=== PATIENT | female | born 1950 | race Caucasian/White ===

== ENCOUNTER 2018-06-08 14:28 | Inpatient (IN) | payer OTHER ==
[~2018-06-08] VITALS: Ht 157.5 cm; Wt 54.0 kg
[~2018-06-08 14:28] MED LIST: ADULT LOW DOSE81 MG; ASPIR 8181 MG PO; ATENOLOL-CHLOR1 EAC1 PO; CALCIUM 500+D1 EAC2; COMBIVENT INH; DEXAMETHASONE 44 M1 PO; DIFLUNISAL500 MG; DUONEB 2.5-0.5 M3 ML INH; FERREX 150 PLU1 EAC1 PO; LEVAQUIN 750 M750 MG PO; ONDANSETRON HCL4 M2 PO; PREDNISONE 10 M10 MG PO; PREDNISONE50 MG PO; PREVACID 30MG C30 M1 PO; PROPRANOLOL 4040 MG PO; PROTONIX40 M1 PO; PULMICORT0.5 MG/22 INH; SIMVASTATIN40 MG PO; SYMBICORT160 MCG/4. INH; VITAMIN D1000 UNI1; VITAMIN D3; VITAMIN D3400 UNIT PO; XARELTO15 MG PO
[2018-06-08] MEDS ORDERED: PRENATAL PO (16:18)
[2018-06-08 16:19] VITALS: BP 136/67
[2018-06-08 17:01] LABS: HEMATOCRIT 40.1 % (37.0-47.0); HEMOGLOBIN 13.1 gm/dL (12.0-15.0); MCH 29.3 pg (26.0-34.0); MCHC 32.7 g/dL (28.0-37.0); MCV 89.4 fL (80.0-100.0); MPV 7.1 fl. (7.2-11.1); RBC 4.49 mil/uL (4.20-5.00); RDW-CV 14.2 % (10.5-14.5); WBC 6.9 thou/uL (4.0-11.0)
[2018-06-08 17:17] LABS: ALBUMIN 2.7 g/dL (3.4-5.0); ANION GAP 4 mmol/L (7-16); BUN 20 mg/dL (7-18); CALCIUM 9.6 mg/dL (8.5-10.1); CHLORIDE 98 mmol/L (98-107); CO2 36 mmol/L (21-32); CREATININE 0.8 mg/dL (0.6-1.3); GLUCOSE 91 mg/dL (70-99); PHOSPHORUS* 4.1 mg/dL (2.5-4.9); POTASSIUM 3.7 mmol/L (3.5-5.1); SODIUM 138 mmol/L (136-145); TROPONIN-I LEVEL <0.06 ng/mL (<0.06)
[2018-06-08 20:25] VITALS: BP 102/55
[2018-06-09] VITALS: BP 100/63
[2018-06-09 04:00] VITALS: BP 96/52
[2018-06-09 07:55] VITALS: BP 103/68
[2018-06-09 12:00] VITALS: BP 111/65
--- NOTE | 2018-06-09 15:08 | 2DMMODE ---
[place] [address] 2 D/M-MODE ECHOCARDIOGRAM Name: OBI SALDIVAR Room: [address] IN [facility]#: [id number] Admission: 06/08/18 Attend Phys: Josuse Dumont Discharge: Date of : 46 Date of Service: 06/09/18 1507 Report #: [id number] THIS REPORT FOR: //name// APPROVED REPORT Study performed: 06/09/2018 11:39:13 EXAM: Comprehensive 2D, Doppler, and color-flow Echocardiogram Patient Location: In-Patient Room #: [facility] Status: routine BSA: 1.55 HR: 90 bpm BP: 103/68 mmHg Rhythm: NSR Other Information Study Quality: Good Indications Hypotension Pulmonary Embolism 2D Dimensions IVSd: 9.87 (7-11mm) LVOT Diam: 21.33 (18-24mm) LVDd: 34.83 mm PWd: 10.85 (7-11mm) Ascending Ao: 28.37 (22-36mm) LVDs: 20.24 (25-40mm) Aortic Root: 30.03 mm Volumes Left Atrial Volume (Systole) LA ESV Index: 14.60 mL/m2 Aortic Valve AoV Peak Walter.: 1.18 m/s AO Peak Gr.: 5.56 mmHg LVOT Max P.54 mmHg AO Mean Gr.: 3.00 mmHg LVOT Mean P.52 mmHg LVOT Max V: 0.94 m/s AO V2 VTI: 21.37 cm LVOT Mean V: 0.56 m/s DAVID (VTI): 3.02 cm2 LVOT V1 VTI: 18.05 cm Mitral Valve E/A Ratio: 0.78 MV Decel. Time: 199.03 [place] [address] 2 D/M-MODE ECHOCARDIOGRAM Name: OBI SALDIVAR Room: [address] IN .R.#: [id number] Admission: 06/08/18 Attend Phys: Jossue Dumont Discharge: Date of : 46 Date of Service: 06/09/18 1507 Report #: [id number] MV E Max Walter.: 0.67 m/s MV PHT: 57.72 ms MVA (PHT): 3.81 cm2 TDI E/Lateral E': 8.38 E/Medial E': 8.38 Medial E' Walter.: 0.08 m/s Lateral E' Walter.: 0.08 m/s Pulmonary Valve PV Peak Walter.: 1.01 m/s PV Peak Gr.: 4.09 mmHg Left Ventricle The left ventricle is normal size. There is normal LV segmental wall motion. There is normal left ventricular wall thickness. Left ventricular systolic function is normal. The left ventricular ejection fraction is within the normal range. LVEF is 60-65%. Grade I - abnormal relaxation pattern. Right Ventricle The right ventricle is normal size. The right ventricular systolic function is normal. Atria The left atrium size is normal. The right atrium size is normal. Aortic Valve Mild aortic valve sclerosis. No aortic regurgitation is present. There is no aortic valvular stenosis. Mitral Valve The mitral valve is normal in structure. There is no mitral valve regurgitation noted. No evidence of mitral valve stenosis. Tricuspid Valve The tricuspid valve is normal in structure. Unable to assess PA pressure. Trace tricuspid regurgitation. Pulmonic Valve The pulmonary valve is normal in structure. There is no pulmonic valvular regurgitation. Great Vessels The aortic root is normal in size. IVC is normal in size and collapses >50% [place] [address] 2 D/M-MODE ECHOCARDIOGRAM Name: OBI SALDIVAR Room: [address] IN [facility]#: [id number] Admission: 06/08/18 Attend Phys: Jossue Dumont Discharge: Date of : 46 Date of Service: 06/09/18 1507 Report #: [id number] Pericardium There is no pericardial effusion. <Conclusion> The left ventricle is normal size. There is normal left ventricular wall thickness. Left ventricular systolic function is normal. The left ventricular ejection fraction is within the normal range. LVEF is 60-65%. Grade I - abnormal relaxation pattern. The right ventricle is normal size. The left atrium size is normal. Mild aortic valve sclerosis. No aortic regurgitation is present. There is no aortic valvular stenosis. The mitral valve is normal in structure. The tricuspid valve is normal in structure. IVC is normal in size and collapses >50% with inspiration. There is no pericardial effusion. There is normal LV segmental wall motion. <ELECTRONICALLY SIGNED> By: Rommel Gaspar MD, FACC 06/09/18 1507 1507 1507 Rommel Gaspar MD, FACC /INF
[2018-06-09 16:00] VITALS: BP 146/84
[2018-06-09 20:00] VITALS: BP 103/58
[2018-06-10] VITALS: BP 116/62
[2018-06-10 04:00] VITALS: BP 116/66
[2018-06-10 04:50] LABS: HEMATOCRIT 35.1 % (37.0-47.0); HEMOGLOBIN 11.6 gm/dL (12.0-15.0); MCH 29.8 pg (26.0-34.0); MCHC 33.1 g/dL (28.0-37.0); MPV 7.6 fl. (7.2-11.1); RBC 3.91 mil/uL (4.20-5.00); RDW-CV 14.1 % (10.5-14.5); WBC 7.6 thou/uL (4.0-11.0)
[2018-06-10 07:40] VITALS: BP 115/65
[2018-06-10] MEDS ORDERED: ENOXAPARIN60 MG/0.1 SUBQ (10:25)
[2018-06-10 10:33] VITALS: BP 115/65
--- NOTE | 2018-06-10 12:03 | CON ---
[address] [address] CONSULTATION Name: OBI SALDIVAR Room: [address] ADM IN M.R.#: [id number] Admission: 06/08/18 Attend Phys: Gina Brown Discharge: Date of : 46 Report #: [id number] THIS REPORT FOR: //name// CC: Kelton Andry Dumont DATE OF SERVICE: 06/09/2018 REASON FOR EVALUATION: Pulmonary embolism. REFERRING PHYSICIAN: Jossue Dumont MD CHIEF COMPLAINT: Incidental pulmonary embolism found on a serial CT. HISTORY OF PRESENT ILLNESS: The patient is a pleasant 68-year-old woman with past medical history of lung cancer diagnosed and treated last year with chemoradiation, history of COPD on home O2 for the last 3 years. She was admitted for further evaluation after incidental finding of pulmonary embolism. The patient is following at [facility] in [place] and she had serial CT for followup of her lung cancer and incidentally found to have pulmonary embolism. CT is not available at this time. However, from the patient records, multiple PEs were found. Previously in 2017 she had left upper pulmonary embolism in a CT. At that time, she was treated with anticoagulation, which was stopped. The patient states that she is on her usual health and complains of exertional dyspnea on moderate exertion, using oxygen all the time. She has chronic cough productive of clear to yellow mucus; however, no change in her cough. She has no chest pain, hemoptysis, no fever or chills. As above, the patient in 06/2017 was admitted, had pulmonary embolism and had also aspirated tooth that was extracted by Dr. An. Also, during that admission the patient had chronic obstructive pulmonary disease exacerbation requiring ICU admission on BiPAP support. REVIEW OF SYSTEMS: PULMONARY: Exertional shortness of breath, on home O2. Chronic cough. GASTROINTESTINAL: Previous history of GI bleeding. LOWER EXTREMITY/MUSCULOSKELETAL: Denies lower extremity swelling or pain. CARDIOVASCULAR: Denies chest pain. Otherwise, review of systems unremarkable and no fever, no chills. PAST MEDICAL HISTORY: COPD, on home O2; chronic hypercapnic respiratory failure, GI bleeding, previous history of lung cancer treated with chemoradiation, previous history of pulmonary embolism as above, hyperlipidemia, [place] [address] CONSULTATION Name: OBI SALDIVAR Room: [address]#: [id number] Admission: 06/08/18 Attend Phys: Gina Brown Discharge: Date of : 46 Report #: [id number] ALLERGIES: PEANUTS, CEPHALOSPORINS, PENICILLIN, BETA-LACTAM, CARBAPENEM. HOME MEDICATIONS: Include aspirin. The patient states she is taking Symbicort. PAST SURGICAL HISTORY: Tonsillectomy, right hip replacement. FAMILY HISTORY: Significant for heart disease. SOCIAL HISTORY: Former smoker. She smoked from age of 14 until 1995 around a pack and a half a day. PHYSICAL EXAMINATION: GENERAL: The patient is not in distress. VITAL SIGNS: Stable, afebrile, heart rate 78, blood pressure 103/78. She is on oxygen at 4 liters, satting 98%. HEAD AND NECK: Mucous membranes wet. No acute jugular venous distention. Neck is supple. No lymph node enlargement. CHEST: She has barrel chest. She does not have wheezing; however, she has decreased breath sounds in the right lung base. CARDIOVASCULAR: Regular rhythm, normal S1, S2. No murmur. ABDOMEN: Soft, nontender. EXTREMITIES: She has dilated veins; however, no swelling, no calf tenderness. NEUROLOGIC: No focal deficits grossly. PSYCHIATRIC: Alert, oriented. Normal affect. SKIN: No changes. EYES: Nonicteric. LABORATORY DATA AND OTHER DATABASE: Her troponin was checked, was normal. White blood cells 6.9, hemoglobin 13.1, platelet count 251. Troponin as above was normal, less than 0.06. Bicarbonate was increased at 36. Known to have chronic hypercapnia. A chest CT is not available at this time; however, her previous chest CT, which was done in 06/2017, showed left upper lobe pulmonary emboli. There was aspirated tooth with metal finding in the right lower lobe and bilateral effusion and bullous emphysema. ASSESSMENT AND PLAN: New diagnosis of pulmonary embolism. A CT is not available at this time, was done at [facility] in [facility], it was a serial CT. It was an incidental finding. The patient denies any new symptoms. At this time, I agree with anticoagulation. Her troponin is negative, I agree with obtaining echocardiogram. Recommend obtaining natriuretic peptide as well to evaluate severity. The patient is currently hemodynamically stable. At this time, it is not clear what is the status of her malignancy, if she is in remission or not, waiting for CT, though the patient was told that her CT was okay cancer guerrier. At this time, I agree with continuing Lovenox with a possible active malignancy. Low molecular weight [address] [address] CONSULTATION Name: OBI SALDIVAR Room: [address] IN M.R.#: [id number] Admission: 06/08/18 Attend Phys: Gina Brown Discharge: Date of : 46 Report #: [id number] heparin is recommended for patients with active malignancy. Chronic obstructive pulmonary disease, currently the patient not in exacerbation. I agree with treatment with bronchodilators, recommend DuoNeb every 6 hours as needed. As outpatient, with significant severe emphysema, I recommend to add long-acting anticholinergic as well in addition to Symbicort and albuterol as needed. She is on chronic oxygen. She has chronic hypercapnic respiratory failure. At this time, the patient is not in exacerbation. We will continue to follow. Please obtain chest CT results and film. Previous history of aspiration. Denies any aspiration symptoms at this time. However, her exam finding shows decreased air movement in the right base. We will obtain chest x-ray in the morning. I would like to thank you for allowing me to participate in the care of this patient. Please do not hesitate to call with questions. <ELECTRONICALLY SIGNED> By: Mishel Monroy MD 06/10/18 1203 [id number] Laurel Diaz MD /nt
== END 2018-06-10 13:00 | disposition home or self-care (01) | DRG 175 ==
LOC: M.2W 14:28
PROVIDERS: Internal Medicine; ADMIT Internal Medicine
DX: I26.99 Other pulmonary embolism without acute cor pulmonale (principal); J96.21 Acute and chronic respiratory failure with hypoxia; E44.0 Moderate protein-calorie malnutrition; J44.9 Chronic obstructive pulmonary disease, unspecified; K21.9 Gastro-esophageal reflux disease without esophagitis; M19.90 Unspecified osteoarthritis, unspecified site; Z96.641 Presence of right artificial hip joint; E78.00 Pure hypercholesterolemia, unspecified; Z68.21 Body mass index [BMI] 21.0-21.9, adult; Z85.118 Personal history of other malignant neoplasm of bronchus and lung; Z92.21 Personal history of antineoplastic chemotherapy; Z87.891 Personal history of nicotine dependence; Z92.3 Personal history of irradiation; Z99.81 Dependence on supplemental oxygen; Z88.0 Allergy status to penicillin; Z88.8 Allergy status to other drugs, medicaments and biological substances; Z88.1 Allergy status to other antibiotic agents; Z91.010 Allergy to peanuts; Z82.49 Family history of ischemic heart disease and other diseases of the circulatory system